=== PATIENT | female | born 1995 | race Caucasian/White ===

== ENCOUNTER 2016-03-27 19:39 | Emergency (ER) | payer OTHER ==
[~2016-03-27] VITALS: Ht 162.6 cm; Wt 70.0 kg
[2016-03-27 20:24] VITALS: Ht 162.6 cm; Wt 70.0 kg
[2016-03-27] MEDS ORDERED: CETI10CA PO (20:52)
[2016-03-27] MEDS ORDERED: IBUP-1542 PO (20:52)
[2016-03-27] MEDS ORDERED: ALBU8.5H3 INH (20:52)
[2016-03-27] MEDS ORDERED: GUAI120S26 PO (20:52)
--- NOTE | 2016-03-27 20:57 | ERD ---
ER Documentation Chief Complaint Date/Time DATE: 03/27/16 TIME: 20:55 Chief Complaint cough since yesterday hx of asthma HPI 21-year-old female presents to emergency department for complaints of cough and wheezing started yesterday. Patient has history of asthma, has an inhaler at home albuterol which helped with her symptoms. Patient has been having dry cough , does not cough up any phlegm or blood. Patient has episodes of wheezing, denies any fever or chills. Patient denies any chest pain or palpitations. Patient denies any sore throat or ear pain. Patient denies any irregular heartbeat. Patient denies any dizziness. Patient denies any sick contacts. ROS All systems reviewed and are negative except as per history of present illness. Medications Home Meds Active Scripts Ibuprofen* (Motrin*) 600 Mg Tab, 600 MG PO Q6H Y for PAIN AND OR ELEVATED TEMP, #30 TAB Prov:JOHAN VELÁZQUEZ NP 03/27/16 Cetirizine Hcl* (Zyrtec*) 10 Mg Capsule, 10 MG PO DAILY, #30 TAB.CHEW Prov:JOHAN VELÁZQUEZ NP 03/27/16 Emmwbwmzmql-N-Qnxcfdkhmm Hb* (Guaifenesin* DM Syrup) 120 Ml Syrup, 10 ML PO Q4H Y for COUGH, #120 ML Prov:JOHAN VELÁZQUEZ NP 03/27/16 Albuterol Sulfate* (Proair HFA*) 8.5 Gm Hfa.aer.ad, 2 PUFF INH Q4H Y for WHEEZING AND SOB, #1 INHALER Prov:JOHAN VELÁZQUEZ NP 03/27/16 Allergies Allergies: Coded Allergies: No Known Allergy (Unverified , 03/27/16) PMhx/Soc Hx Respiratory Disorders: Yes (asthma) FmHx Family History: No coronary disease, No diabetes, No other Physical Exam Vitals Vital Signs Date Time Temp Pulse Resp B/P Pulse Ox O2 Delivery O2 Flow Rate FiO2 03/27/16 20:24 98.3 88 20 128/70 100 Physical Exam GENERAL: The patient is well developed and appropriate for usual state of health, in no apparent distress. CHEST: Clear to auscultation bilaterally. There are no rales, wheezes or rhonchi. HEART: Regular rate and rhythm. No murmurs, clicks, rubs or gallops. No S3 or S4. ABDOMEN: Soft, nontender and nondistended. Good bowel sounds. No rebound or guarding. No gross peritonitis. No gross organomegaly or masses. No Larios sign or McBurney point tenderness. BACK: No midline or flank tenderness. EXTREMITIES: Equal pulses bilaterally. There is no peripheral clubbing, cyanosis or edema. No focal swelling or erythema. Full range of motion. Grossly neurovascularly intact. NEURO: Alert and oriented. Cranial nerves 2-12 intact. Motor strength in all 4 extremities with 5/5 strength. Sensation grossly intact. Normal speech and gait. SKIN: There is no apparent rash or petechia. The skin is warm and dry. HEMATOLOGIC AND LYMPHATIC: There is no evidence of excessive bruising or lymphedema. No gross cervical, axillary, or inguinal lymphadenopathy. Procedures/MDM Medical Decision Making: Patient symptoms are most likely consistent with acute bronchitis, which viral in origin. Patient is not wheezing at this time. There is low suspicion for Pneumonia at this time since patients lungs sounds are clear, patient O2 saturation is normal and patient doesnt show any respiratory distress. Radiology exam is not indicated at this time. There is low suspicion for other cardiopulmonary emergencies at this time such as CHF, Pulmonary Embolism, Pneumothorax, Aortic Aneurysm or any other cardiopulmonary emergencies at this time. There is low suspicion for sepsis. Patient appears well and is hemodynamically stable. Patient does not have any fever. Disposition: Home. Condition: Stable Prescriptions: Albuterol, guaifenesin DM, ibuprofen, Zyrtec Instructions: Patient is advised to take medications as prescribed. Patient is advised to rest. Patient advised to increase fluid intake, do humidifier at home and if possible, do salt water gargles. Patient is advised that if symptoms are worse, shortness of breath, uncontrolled fever, stridor, vomiting, worst signs and symptoms to return to emergency department immediately. Otherwise, patient is advised to follow up with primary doctor in 5-7 days. Departure Diagnosis: Primary Impression: Acute bronchitis Bronchitis organism: unspecified organism Qualified Code: J20.9 - Acute bronchitis, unspecified organism Condition: Stable Patient Instructions: Bronchitis With Wheezing (Adult) JOHAN VELÁZQUEZ NP Mar 27, 2016 20:57
== END 2016-03-27 20:55 | disposition home or self-care (01) ==
LOC: E/R 19:39
DX: J20.9 Acute bronchitis, unspecified (principal); J45.909 Unspecified asthma, uncomplicated
CPT/HCPCS: 99283